=== PATIENT | male | born 1975 | race Caucasian/White ===

== ENCOUNTER 2017-09-30 11:08 | Day surgery (SDC) | payer BC ==
[~2017-09-30] VITALS: Ht 172.7 cm; Wt 81.1 kg
[~2017-09-30 11:08] MED LIST: AZIT500 PO; CYCL10 PO; DOXY100 PO; HYDACE5 PO; IBUP600 PO; IBUP800 PO; OXYACE5T PO; SUMA25 PO
== END 2017-09-30 14:22 | disposition home or self-care (01) ==
LOC: ORSCSDS 11:08
PROVIDERS: Podiatrist
PROC: 0QBR0ZZ Excision of Left Toe Phalanx, Open Approach (ICD-10-PCS; principal; 2017-09-30 12:30)
DX: M20.12 Hallux valgus (acquired), left foot (principal)
CPT/HCPCS: C1713; J0690; J1100; J1885; J2250; J2405; J3010; J7120

== ENCOUNTER 2022-02-08 14:18 | Emergency (ER) | payer MEDICAID ==
[~2022-02-08] VITALS: Ht 170.2 cm; Wt 77.1 kg
[2022-02-08 15:23] LABS: BASOPHILS ABSOLUTE AUTO 0.05 K/mm3 (0.00-0.23); BASOPHILS PERCENT AUTO 1 % (0-2); EOSINOPHILS ABSOLUTE AUTO 0.16 K/mm3 (0.00-0.68); EOSINOPHILS PERCENT AUTO 2 % (0-6); Hematocrit 44.6 % (37.0-53.0); IMMATURE GRAN ABSOLUTE AUTO 0.01 K/mm3 (0.00-0.10); IMMATURE GRAN PERCENT AUTO 0 % (0-1); LYMPHOCYTES ABSOLUTE AUTO 2.51 K/mm3 (0.84-5.20); LYMPHOCYTES PERCENT AUTO 35 % (21-46); MONOCYTES ABSOLUTE AUTO 0.53 K/mm3 (0.16-1.47); MONOCYTES PERCENT AUTO 7 % (4-13); Mean Corpuscular HGB 30.7 pg (26.0-34.0); Mean Corpuscular HGB Conc 33.6 g/dL (31.5-36.5); Mean Corpuscular Volume 91 fL (80-100); Mean Platelet Volume 10.4 fL (9.1-12.4); NEUTROPHILS ABSOLUTE AUTO 3.97 K/mm3 (1.96-9.15); NEUTROPHILS PERCENT AUTO 55 % (41-73); Platelet Count 231 K/mm3 (150-400); RDW Coefficient Variation 12.4 % (11.7-14.2); RDW Standard Deviation 41.8 fL (35.1-46.3); Red Blood Cell Count 4.88 M/mm3 (4.30-5.90); White Blood Cell Count 7.23 K/mm3 (4.00-11.30)
[2022-02-08 15:41] LABS: C-REACTIVE PROTEIN, EXT RANGE <0.290 mg/dL (0.000-0.300)
[2022-02-08 15:43] LABS: Alanine Aminotransfer (ALT/SGP 24 U/L (12-78); Albumin, Blood 3.6 g/dL (3.4-5.0); Albumin/Globulin Ratio 0.9 (0.8-1.8); Alk Phos 57 U/L (50-136); Anion Gap 3 mmol/L (6-16); Aspartate Aminotrans (AST/SGOT 14 U/L (12-37); Bilirubin, Total 0.4 mg/dL (0.1-1.0); Blood Urea Nitrogen 15 mg/dL (8-24); Bun/Creatinine Ratio 17.2 (12.0-20.0); CO2, Blood 29 mmol/L (21-32); Chloride, Blood 109 mmol/L (98-108); Creatinine, Blood 0.87 mg/dL (0.60-1.20); Globulin, Blood 3.8 g/dL (2.2-4.0); Glomerular Filtration Rate 109 (60-); Glucose, Blood 120 mg/dL (70-99); Sodium, Blood 141 mmol/L (136-145); Total Protein, Blood 7.4 g/dL (6.4-8.2)
[2022-02-08 17:07] LABS: Source, Urine Clean Catch
[2022-02-08 17:12] LABS: Bilirubin, Urine Neg (Neg); Blood, Urine 1+ (Neg); Color, Urine Yellow (P-Yellow); Glucose Qualitative, Urine Neg (Neg); Ketones, Urine Neg (Neg); Leukocyte Esterase, Urine Neg (Neg); Nitrite, Urine Neg (Neg); Protein, Urine Neg (Neg); Urobilinogen, Urine NORM (Normal)
[2022-02-08 17:29] LABS: Appearance, Urine Hazy (Clear)
[2022-02-08 17:30] LABS: Bacteria Few /hpf; Red Blood Cells, Urine 0-2 /hpf (0-2); Squamous Epithelial Cells Rare /hpf (Few); White Blood Cells, Urine 0-2 /hpf (0-5)
[2022-02-08 17:31] LABS: Mucus Light (0-Heavy)
== END 2022-02-08 21:06 | disposition home or self-care (01) ==
LOC: ER 14:18
PROVIDERS: Physician Assistant
DX: R20.2 Paresthesia of skin (principal); R53.1 Weakness; M40.209 Unspecified kyphosis, site unspecified; M54.6 Pain in thoracic spine; M25.50 Pain in unspecified joint; Z87.891 Personal history of nicotine dependence
CPT/HCPCS: 36415; 70450; 72125; 72128; 80053; 81001; 82607; 85025; 85651; 86140; 86592; 99284-25